=== PATIENT | female | born 1935 | race Caucasian/White ===

== ENCOUNTER 2018-03-25 09:04 | Emergency (ER) | payer OTHER, MEDICARE ==
[2018-03-25] MEDS ORDERED: MORPHINE SULFATE 10 MG/ML INJ IV ONE ×2 (09:34→11:50)
[2018-03-25] MEDS ORDERED: ONDANSETRON HCL INJ/PF 4 MG/2 ML SDV IV ONE ×2 (09:34→11:50)
--- NOTE | 2018-03-25 09:41 | ER Document Report ---
ED Fall - General Mode of Arrival: Ambulatory Information source: Patient TRAVEL OUTSIDE OF THE [place] IN LAST 30 DAYS: No <SWETHA BAIRD - Last Filed: 03/25/18 09:55> <NANCY MCMANUS - Last Filed: 03/25/18 15:58> - General Chief Complaint: Fall Injury Stated Complaint: FALL/RIGHT HIP PAIN Time Seen by Provider: 03/25/18 09:21 Notes: 83-year-old female that presents to the emergency department today after a mechanical fall. 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 Patient landed on an outdoor concrete pad. Patient complains of right hip pain. Patient also has a skin tear to her right lateral elbow. (SWETHA BAIRD) - Related data Allergies/Adverse Reactions: No Known Allergies Allergy (Unverified 10/22/11 08:44) Past Medical History - General Information source: Patient, Relative, [facility] Records - Social History Smoking Status: Unknown if Ever Smoked Cigarette use (# per day): No Frequency of alcohol use: None Drug Abuse: None Family History: Reviewed & Not Pertinent Patient has suicidal ideation: No Patient has homicidal ideation: No Malignancy Medical History: Reports: Hx Lung Cancer Past Surgical History: Reports: Hx Cholecystectomy, Hx Hysterectomy, Hx Orthopedic Surgery - Bilateral knee replacements, Other - Lung resection for CA <SWETHA BAIRD - Last Filed: 03/25/18 09:55> Review of Systems - Review of Systems Constitutional: No symptoms reported EENT: No symptoms reported Cardiovascular: No symptoms reported Respiratory: No symptoms reported Gastrointestinal: No symptoms reported Genitourinary: No symptoms reported Female Genitourinary: No symptoms reported Musculoskeletal: See HPI, Joint pain - right hip Skin: See HPI, Other - skin tear on right elbow Hematologic/Lymphatic: No symptoms reported Neurological/Psychological: No symptoms reported -: Yes All other systems reviewed and negative <SWETHA BAIRD - Last Filed: 03/25/18 09:55> Physical Exam <SWETHA BAIRD - Last Filed: 03/25/18 09:55> <NANCY MCMANUS - Last Filed: 03/25/18 15:58> - Vital signs Vitals: Temp Pulse Resp BP Pulse Ox 97.5 F 100 18 162/83 H 98 03/25/18 09:06 03/25/18 09:06 03/25/18 09:06 03/25/18 09:06 03/25/18 09:06 - Notes Notes: Physical Exam: General: Alert, appears to be in pain. HEENT: Normocephalic. Atraumatic. PERRL. Extraocular movements intact. Oropharynx clear. Neck: Supple. Non-tender. Respiratory: No respiratory distress. Clear and equal breath sounds bilaterally. Cardiovascular: Regular rate and rhythm. Abdominal: Normal Inspection. Non-tender. No distension. Normal Bowel Sounds. Back: Non-tender. No deformity or step off. Extremities Upper extremities: Normal inspection. Normal ROM. Lower extremities: Pelvis is stable, right hip tenderness with palpation. Lying on right side with hips and knees flexed. Neurological: Normal cognition. AAOx4. Normal speech. Psychological: Normal affect. Normal Mood. Skin: 2 cm x 2 cm skin tear of the right lateral elbow (SWETHA BAIRD) Course - Laboratory Result Diagrams: 03/25/18 09:53 03/25/18 09:53 - Diagnostic Test Radiology reviewed: Image reviewed, Reports reviewed - Acute subcapital femoral neck fracture - EKG Interpretation by Id EKG shows normal: Sinus rhythm, Satin, Intervals, QRS Complexes, ST-T Waves Rate: Normal - 99 Rhythm: NSR Satin/QRS: Right axis deviation - Consults Dr. Hernandez Consulted provider: other - Will accept in the emergency department at [facility]. <NANCY MCMANUS - Last Filed: 03/25/18 15:58> - Vital Signs Vital signs: Temp Pulse Resp BP Pulse Ox 98.0 F 105 H 15 121/67 95 03/25/18 12:35 03/25/18 12:35 03/25/18 12:35 03/25/18 12:35 03/25/18 12:35 - Laboratory Laboratory results interpreted by pa: 03/25/18 03/25/18 09:53 09:53 RBC 3.71 L Hgb 11.2 L Hct 32.9 L Glucose 120 H Total Protein 8.8 H Discharge <SWETHA BAIRD - Last Filed: 03/25/18 09:55> <NANCY MCMANUS - Last Filed: 03/25/18 15:58> - Discharge Condition: Good Disposition: [facility] Referrals: DARRIN OLIVER MD [Primary Care Provider] - Follow up as needed Scribe Attestation: 03/25/18 15:58 I personally performed the services described in the documentation, reviewed and edited the documentation which was dictated to the scribe in my presence, and it accurately records my words and actions. (NANCY MCMANUS) Scribe Documentation - Scribe Written by Luis Me:: Kaylynn Richardson, 03/25/2018 [id number] acting as scribe for :: Luz <SWETHA BAIRD - Last Filed: 03/25/18 09:55>
--- NOTE | 2018-03-25 09:52 | RADIOLOGY REPORT (SQ) ---
EXAM DESCRIPTION: HIP RIGHT AP/LATERAL COMPLETED DATE/TIME: 03/25/2018 9:27 am REASON FOR STUDY: bed 8 s/p fall tenderness COMPARISON: None. NUMBER OF VIEWS: Two views. TECHNIQUE: AP pelvis and additional frog-leg view of the right hip. LIMITATIONS: None. FINDINGS: MINERALIZATION: Osteoporotic RIGHT HIP: Acute subcapital femoral neck fracture with varus angulation. LEFT HIP: No fracture or dislocation. No significant joint space narrowing. No worrisome bone lesio ns. PUBIS AND ISCHIUM: No fracture. PELVIS: No fracture. SACRUM: No fracture or dislocation. No worrisome bone lesions. LOWER LUMBAR SPINE: No fracture or dislocation. No worrisome bone lesions. No significant disc disea se. SOFT TISSUES: No findings. OTHER: No other significant finding. IMPRESSION: Acute right hip subcapital femoral neck fracture TECHNICAL DOCUMENTATION: JOB ID: [id number] [email or web address]- All Rights Reserved Reading location - IP/workstation name: [email or web address]
[2018-03-25 10:11] LABS: ABSOLUTE EOSINOPHILS # (AUTO) 0.2 10^3/uL (0.0-0.6); ABSOLUTE LYMPHOCYTES (AUTO) 0.9 10^3/uL (0.5-4.7); ABSOLUTE MONOCYTES (AUTO) 0.4 10^3/uL (0.1-1.4); ABSOLUTE NEUT (AUTO) 3.2 10^3/uL (1.7-8.2); EOSINOPHILS % (AUTO) 3.5 % (0-6); HEMATOCRIT 32.9 % (36.0-47.0); HEMOGLOBIN 11.2 g/dL (12.0-15.5); LYMPHOCYTES % (AUTO) 19.5 % (13-45); MEAN CORPUSCULAR HEMOGLOBIN 30.2 pg (27.0-33.4); MEAN CORPUSCULAR HGB CONC 34.1 g/dL (32.0-36.0); MEAN CORPUSCULAR VOLUME 89 fl (80-97); MONOCYTES % (AUTO) 7.9 % (3-13); PLATELET COUNT 187 10^3/uL (150-450); RED BLOOD COUNT 3.71 10^6/uL (3.72-5.28); RED CELL DISTRIBUTION WIDTH 13.5 % (11.5-14.0); SEGMENTED NEUTROPHILS % (AUTO) 68.1 % (42-78); TOTAL CELLS COUNTED % (AUTO) 100 %; WHITE BLOOD COUNT 4.7 10^3/uL (4.0-10.5)
[2018-03-25 10:28] LABS: ALANINE AMINOTRANSFERASE 14 U/L (9-52); ALBUMIN 4.1 g/dL (3.5-5.0); ALKALINE PHOSPHATASE 73 U/L (38-126); ANION GAP 11 (5-19); ASPARTATE AMINO TRANSFERASE 31 U/L (14-36); BILIRUBIN,DIRECT 0.2 mg/dL (0.0-0.4); BILIRUBIN,TOTAL 0.5 mg/dL (0.2-1.3); BLOOD UREA NITROGEN 17 mg/dL (7-20); CALCIUM 9.1 mg/dL (8.4-10.2); CARBON DIOXIDE 25 mmol/L (22-30); CHLORIDE 104 mmol/L (98-107); CREATINE KINASE 103 U/L (30-135); GLUCOSE 120 mg/dL (75-110); POTASSIUM 4.1 mmol/L (3.6-5.0); SODIUM 140.2 mmol/L (137-145); TOTAL PROTEIN 8.8 g/dL (6.3-8.2)
[2018-03-25 10:41] LABS: CREATINE KINASE MB 1.16 ng/mL (<4.55)
[2018-03-25 10:46] LABS: TROPONIN I < 0.012 ng/mL
[2018-03-25 13:08] VITALS: BP 121/67
--- NOTE | 2018-03-25 15:46 | EKG REPORT ---
SEVERITY:- OTHERWISE NORMAL ECG - SINUS RHYTHM BORDERLINE RIGHT AXIS DEVIATION : Confirmed by: Carmen Monson MD 25-Mar-2018 15:45:29
== END 2018-03-25 12:35 | disposition short-term general hospital (02) ==
LOC: ER 09:04
DX: S72.011A Unspecified intracapsular fracture of right femur, initial encounter for closed fracture (principal); S51.011A Laceration without foreign body of right elbow, initial encounter; W19.XXXA Unspecified fall, initial encounter; M21.379 Foot drop, unspecified foot; Z85.118 Personal history of other malignant neoplasm of bronchus and lung
CPT/HCPCS: 93005; 96376; 99285; 96374; 96375; 36415; 82553; 82550; 85025; 80053; 84484; 73502; 93010; J2270; J2405